=== PATIENT | male | born 1950 | race Caucasian/White ===

== ENCOUNTER 2021-03-29 14:19 | Emergency (ER) | payer OTHER ==
[~2021-03-29] VITALS: Ht 175.3 cm; Wt 86.2 kg
[2021-03-29] MEDS ORDERED: LISINOPRIL-HCT1 EAC2 PO (14:27)
[2021-03-29] MEDS ORDERED: LIPITOR10 MG PO (14:28)
[2021-03-29] MEDS ORDERED: HYDROCODON-ACE1 EAC7 PO (16:00)
[2021-03-29] MEDS ORDERED: CEPHALEXIN500 MG PO (16:00)
[2021-03-29 16:11] VITALS: BP 136/66
== END 2021-03-29 16:11 | disposition home or self-care (01) ==
LOC: ER 14:19
DX: S61.201A Unspecified open wound of left index finger without damage to nail, initial encounter (principal); I10 Essential (primary) hypertension; W31.2XXA Contact with powered woodworking and forming machines, initial encounter; Y93.89 Activity, other specified; Y92.89 Other specified places as the place of occurrence of the external cause; Y99.8 Other external cause status